=== PATIENT | male | born 1985 | race Caucasian/White ===

== ENCOUNTER 2019-10-26 12:32 | Emergency (ER) | payer OTHER | END 2019-10-26 12:51 | disposition other institution (70) | LOC: ED 12:32 | DX: Z02.89 Encounter for other administrative examinations (principal) ==

== ENCOUNTER 2019-10-26 12:32 | Emergency (ER) | payer OTHER ==
[~2019-10-26] VITALS: Ht 177.8 cm; Wt 99.8 kg
[2019-10-26 12:34] VITALS: BP 143/92; Ht 177.8 cm; Wt 99.8 kg
== END 2019-10-26 12:51 | disposition other institution (70) ==
LOC: ED 12:32
DX: B86 Scabies (principal)